=== PATIENT | female | born 2000 | race Caucasian/White ===

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

== ENCOUNTER 2021-01-31 16:16 | Emergency (ER) | payer BC ==
--- NOTE | 2021-01-31 16:55 | EDM.PDOC ---
ED HPI GENERAL MEDICAL PROBLEM - General Chief Complaint: ENT Problem Stated Complaint: sore throat Time Seen by Provider: 01/31/21 16:45 Source of Information: Reports: Patient History Limitations: Reports: No Limitations - History of Present Illness INITIAL COMMENTS - FREE TEXT/NARRATIVE: 20-year-old, usually healthy female presents with a scratchy sore throat for the past 24 hours, a hoarse voice, and a mild cough. No fevers or chills, denies ear pain, denies nausea or vomiting or chest pain. No rashes. Onset: Gradual Duration: Day(s): (Symptoms have been worsening for the past 2 days) Associated Symptoms: Reports: Cough, Malaise. Denies: Fever/Chills, Headaches Throat Pain Score (Numeric/FACES): 4 - Related Data Allergies Allergy/AdvReac Type Severity Reaction Status Date / Time No Known Allergies Allergy Verified 01/31/21 16:37 Home Meds: Home Meds Levonorgestrel/Ethin.estradiol [Kurvelo-28 Tablet] 1 tab PO DAILY 03/09/20 [History] Past Medical History - Past Health History Medical/Surgical History: Denies Medical/Surgical History - Infectious Disease History Infectious Disease History: Reports: None Social & Family History - Tobacco Use Tobacco Use Comment: stop vaping 2 months ago - Caffeine Use Caffeine Use: Reports: Coffee - Recreational Drug Use Recreational Drug Type: Reports: Marijuana/Hashish Recreational Drug Use Frequency: Not Used In Over 6 Months ED ROS ENT - Review of Systems Review Of Systems: See Below Constitutional: Reports: Malaise. Denies: Fever, Chills HEENT: Reports: Throat Pain, Other (Hoarseness of her voice). Denies: Ear Pain, Rhinitis Respiratory: Reports: Cough. Denies: Shortness of Breath Cardiovascular: Denies: Chest Pain GI/Abdominal: Denies: Abdominal Pain, Nausea, Vomiting Skin: Reports: No Symptoms. Denies: Rash Neurological: Denies: Headache ED EXAM, ENT - Physical Exam Exam: See Below Exam Limited By: No Limitations General Appearance: Alert, No Apparent Distress Eye Exam: Bilateral Eye: Normal Inspection Ears: Normal External Exam, Normal TMs Nose: Normal Inspection Mouth/Throat: No: Throat Swelling, Tonsillar Erythema, Tonsillar Exudates Head: Atraumatic Neck: No: Lymphadenopathy (R), Lymphadenopathy (L) Respiratory/Chest: Lungs Clear Cardiovascular: Regular Rate, Rhythm Neurological: Alert, Oriented Psychiatric: Normal Affect, Normal Mood Skin: Warm, Dry Course - Vital Signs Last Recorded V/S: Last Vital Signs Temp 97.7 F 01/31/21 16:35 Pulse 74 01/31/21 16:35 Resp 16 01/31/21 16:35 BP 137/62 01/31/21 16:35 Pulse Ox 100 01/31/21 16:35 - Orders/Labs/Meds Orders: Active Orders 24 hr Category Date Time Status CULTURE STREP A CONFIRMATION [RM] Routine Lab 01/31/21 16:49 Results STREP SCRN A RAPID W CULT CONF [RM] Routine Lab 01/31/21 16:49 Results - Re-Assessments/Exams Free Text/Narrative Re-Assessment/Exam: 01/31/21 16:54 With her hoarse voice, her mild cough and relatively normal throat exam this is likely viral. A rapid strep was obtained. 01/31/21 17:13 Strep is negative, patient was informed she has a viral syndrome and can return if worsening. Departure - Departure Time of Disposition: 17:31 Disposition: Home, Self-Care 01 Clinical Impression: Viral pharyngitis - Discharge Information Instructions: Pharyngitis, Sore Throat, [id number] Referrals: PCP,None [Primary Care Provider] - Forms: ED Department Discharge Care Plan Goals: Rest, fluids, ibuprofen may be helpful and increase activity and diet as tolerated. Return if worsening such as worsening pain, difficulty breathing, persistent vomiting or other concerns. Sepsis Event Note (ED) - Focused Exam Vital Signs: Vital Signs Temp Pulse Resp BP Pulse Ox 01/31/21 16:35 97.7 F 74 16 137/62 100 - My Orders Last 24 Hours: My Active Orders 01/31/21 16:49 CULTURE STREP A CONFIRMATION [RM] Routine STREP SCRN A RAPID W CULT CONF [RM] Routine - Assessment/Plan Last 24 Hours: My Active Orders 01/31/21 16:49 CULTURE STREP A CONFIRMATION [RM] Routine STREP SCRN A RAPID W CULT CONF [RM] Routine
== END 2021-01-31 17:31 | disposition home or self-care (01) ==
LOC: JP.ED 16:16
DX: J02.8 Acute pharyngitis due to other specified organisms (principal)
CPT/HCPCS: 87081; 87880-QW; 99283